=== PATIENT | female | born 2000 | race Caucasian/White ===

== ENCOUNTER → 2021-07-18 | Outpatient (CLI) | payer OTHER, SELFPAY ==
[2021-07-18 10:12] LABS: Absolute Lymphocyte Count 2.88 X10^3/uL (0.83-4.51); Absolute Neutrophil Count 4.3 X10^3/uL (2.0-7.7); Basophil# 0.07 X10^3/uL; Basophil% 0.9 % (0-1); Eosinophil# 0.09 X10^3/uL; Eosinophils% 1.1 % (0-5); Hematocrit 44.4 % (37-47); Hemoglobin 14.4 g/dL (12.0-15.0); Internal QC Validated? YES +Cl - CLEAR BKGD; Lymphocyte # 2.88 X10^3/ul (0.83-4.51); Lymphocyte % 36.1 % (19-41); Mean Corp Hgb Conc 32.4 g/dL (32-36); Mean Corpuscular Hgb 27.3 pg (27.0-32.0); Mean Corpuscular Volume 84.3 fL (81-99); Mean Platelet Vol. 12.7 fl (6.2-12.0); Monocyte# 0.63 X10^3/uL; Monocyte% 7.9 % (0-10); NRBC Flagged by Analyzer 0 % (0-5); Neutrophil # 4.28 X10^3/uL (2.7-7.7); Neutrophil % 53.6 % (47-70); Platelet Count 200 K/mm3 (150-450); Pregnancy, Serum, hCG Quali. NEGATIVE Negative; Red Blood Count 5.27 M/mm3 (4.2-5.4)
[2021-07-18 12:57] LABS: ALB/GLOB Ratio 1.1 RATIO (0.9-2.4); AST(SGOT) 20 U/L (15-37); Alanine Aminotransfer ALT/SGPT 34 U/L (13-56); Alkaline Phosphatase 70 U/L (45-117); Anion Gap 9 (5-15); BUN 9 mg/dL (7-18); BUN/Creat Ratio 14.7 RATIO (10-20); Calcium,Total 9.2 mg/dL (8.5-10.1); Chloride 105 mmol/L (98-107); Creatinine, Serum 0.61 mg/dL (0.55-1.02); EST Glomerular Filtration Rate 131 mL/min (>60); Est Glom Filt Rate - Afr Amer 158 mL/min (>60); Follicle Stimulating Hormone 2.4 mIU/mL; Globulin 3.7 g/dL (2.2-4.2); Glucose 97 mg/dL (74-106); Luteinizing Hormone 4.9 mIU/mL; Prolactin 20.4 ng/mL; Protein, Total 7.7 g/dL (6.4-8.2); Sodium Level 137 mmol/L (136-145); Thyroid Stim Hormone (TSH) 1.45 uIU/mL (0.358-3.74)
[2021-07-21 16:08] LABS: Testosterone, Free 1.63 ng/dL (0.10-0.85); Testosterone, Total 63 ng/dL (13-71)
[2021-07-22 08:38] LABS: Testosterone, % Free 2.58 % (0.50-2.80)
[2021-07-23 09:26] LABS: 17-Hydroxyprogesterone 84 ng/dL (.)
== END | disposition home or self-care (01) ==
PROVIDERS: PCP Family Medicine; Visit Provider Family Medicine
DX: L68.0 Hirsutism (principal); N91.5 Oligomenorrhea, unspecified
CPT/HCPCS: 36415; 80053; 83001; 83002; 83498; 84146; 84402; 84403; 84443; 84703; 85025